=== PATIENT | female | born 2000 | race Caucasian/White ===

== ENCOUNTER 2024-10-07 15:34 | Emergency (ER) | payer MEDICAID, SELFPAY ==
--- NOTE | ~2024-10-07 | CT_ITS ---
CLINICAL INDICATION: Abdominal pain, nausea and vomiting COMPARISON: None. TECHNIQUE: Multiple contiguous axial images of the abdomen and pelvis were performed following the ad ministration of with 100 mL Omnipaque-350 intravenous contrast The dose-length product (DLP) was 865.07 mGy-cm. Automated exposure control and iterative reconstruction technique were employed. FINDINGS/OBSERVATIONS: Visualized lower thorax: The bilateral lung bases are clear. The heart is of normal size, without pericardial effusion. Moderate hiatal hernia is present. Liver: The liver enhances homogeneously and is not enlarged measuring 13 cm in longitudinal dimension. Gallbladder and biliary system: The gallbladder is surgically absent. Pancreas: The pancreas enhances homogeneously without ductal dilatation. Spleen: The spleen enhances homogeneously and is not enlarged measuring 9 cm in longitudinal dimension. Kidneys: The bilateral kidneys enhance symmetrically without hydronephrosis or renal calculi. Adrenal glands: Unremarkable. Gastrointestinal tract: Mural thickening and edema is identified within the entirety of the colon with trace surrounding infl ammatory change, findings suggesting a diffuse colitis. Appendix: The air-filled appendix is of normal caliber (axial series, images 98 through 111). Vasculature: Unremarkable. Lymph nodes: No pathologically enlarged or morphologically suspicious lymph nodes within the retroperitoneum or at the root of the mesentery. Pelvic structures: The bladder is decompressed. The uterus is anteverted and anteflexed, and otherwise unremarkable. Body wall and musculoskeletal: Small fat-containing umbilical hernia. No significant degenerative disease within the lower thoracic or lumbosacral spine. IMPRESSION: Findings suggesting an acute pancolitis, as detailed above Moderate hiatal hernia is also noted Reviewed, dictated and finalized at location A. OL SPEECH LANGUAGE PATHOLOGIST
[2024-10-07 15:46] VITALS: BP 139/84; PULSE 81; RESP 18; TEMP 36.6; O2SAT 98
[2024-10-07 16:08] LABS: BEDSIDEPREGUCG Negative (Negative)
[2024-10-07 16:12] LABS: Basophils Percent Auto 0.1 % (0.2-1.2); Eosinophils Percent Auto 0.1 % (0-4.4); Hematocrit 45.2 % (37.0-47.0); Hemoglobin 15.5 g/dL (12.0-15.0); Immature Granulocyte Absolute 0.05 K/mm3 (0.00-0.031); Immature Granulocyte Percent A 0.3 % (0-0.5); Lymphocytes Absolute Auto 1.08 K/mm3 (0.9-3.2); Lymphocytes Percent Auto 6.8 % (18.3-44.2); Mean Corpuscular HGB Conc 34.3 g/dl (32-36); Mean Corpuscular Hemoglobin 26.8 pg (26-34); Mean Corpuscular Volume 78.2 fl (80-100); Mean Platelet Volume 10.1 fl (7.4-10.4); Monocytes Absolute Auto 1.5 K/mm3 (0.1-0.6); Monocytes Percent Auto 9.4 % (2.6-8.5); Neutrophils Absolute Auto 13.3 K/mm3 (1.3-6.7); Neutrophils Percent Auto 83.3 % (45.5-73.1); Platelet Count Result 405 k/mm3 (150-375); Red Blood Count 5.78 M/mm3 (4.2-5.4); Red Cell Distribution Width 14.2 % (11.5-14.5)
[2024-10-07 16:23] LABS: Add Urine Microscopic? YES; Appearance Urine Turbid (Clear); Bacteria Urine 4+ /hpf; Bilirubin Urine 1+ (Negative); Blood Urine 3+ (Negative); Color Urine Dark Yellow (Yellow); Glucose Urine UA Negative (Negative); Ketones Urine 4+ mg/dL (Negative); Leukocyte Esterase Ur Negative LEU/UL (Negative); Mucus Urine Present /lpf; Need Manual Microscopic Reviewed; Nitrate Urine Negative (Negative); Protein Urine 4+ mg/dL (Negative); Specific Grav Ur 1.044 (1.001-1.035); Squamous Epithelial Cell Urine Many /hpf (Few); WBC Urine 51-100 /hpf (0-3); pH Urine 5.5 (5.0-9.0)
[2024-10-07 16:24] LABS: Alanine Aminotransferase 62 U/L (6-35); Albumin Level 5.1 g/dL (3.5-5.1); Alkaline Phosphatase 139 U/L (38-126); Anion Gap 19 mmol/L (4-12); Aspartate Amino Transferase 36 U/L (14-36); Bilirubin,Total 0.8 mg/dL (0.2-1.3); Blood Urea Nitrogen 17 mg/dL (7-17); Calcium 10.4 mg/dL (8.4-10.2); Carbon Dioxide 24 mmol/L (22-30); Chloride 97 mmol/L (98-107); Estimated Glomerular Filt Rate > 60; Glucose 158 mg/dL (65-110); Lipase 289 U/L (23-300); Potassium 3.4 mmol/L (3.4-5.0); Sodium 140 mmol/L (137-145)
[2024-10-07] MEDS: SODIUM CHLORIDE 0.9% IV 1,000 ML 999 ML IV CONT (16:56)
[2024-10-07] MEDS: ONDANSETRON INJ 4 MG/2 ML VIAL IV PUSH (16:57)
[2024-10-07] MEDS: PROMETHAZINE HCL 25 MG/ML AMPUL 12.5 MG IV PUSH (17:59)
--- OUTSIDE RECORDS SUMMARY | 2024-10-07 17:59 | XMS_ITS | Referral Summary ---
Author Organization [facility] Medical Office Building 1 Address [address] [place] [address] Care Team Providers Care Special Trackwork Blacksmith Name Role Phone No, Physician Primary Care Provider [phone] Martha Lafleur DO Unavailable [phone] Allergies Active Allergy Reactions Criticality Noted Date Comments Pollen Extracts Medications vitamin ferrous fumarate-folic ( Multivitamins) 28 mg iron- 800 mcg tablet Take 2 tablets by mouth daily 4 Active folic acid (FOLVITE) 1 mg tablet Take 4 tablets (4 mg total) by mouth daily 4 Active ondansetron ODT (ZOFRAN-ODT) 4 mg disintegrating tablet Take 1 tablet (4 mg total) by mouth every 8 (eight) hours as needed for nausea or vomiting Active Active Problems Problem Noted Date Diagnosed Date Hyperemesis gravidarum 09/06/2023 Seasonal allergic rhinitis 12/26/2013 Overview (11/22/2016): Seasonal allergies Immunizations Immunization Administration Dates Next Due DTP 03/25/2003, 2,04/23/2002,02/23 DTaP 02/17/2007 HPV9 03/27/2017,07/26/2015,04/26/2015 Hep A, Pediatric 04/26/2015,10/24/2010 Hep B, Adolescent or Pediatric 06/29/2002,2001,2001 Hib (HbOC) 03/25/2003, 2,04/23/2002,02/23 IPV 01/18/2006, 3,04/23/2002,02/23 Influenza LAIV (Nasal) 06/26/2012,05/25/2011 Influenza, Quadrivalent, Spl it, Preservative Free, Intramuscular 05/29/2019,10/01/2018 MMR 01/18/2006,12/23/2002 Meningococcal Conjugate (Menveo) 10/01/2018 Meningococcal MCV4P (Menactra) 04/26/2015 Pfizer SARS-CoV-2 Monovalent Vaccination (12+ Yrs) PURPLE 05/11/2021 Pneumococcal Conjugate 7-Valent 03/25/20 03,06/19/2002,04/23/2002,02/23 Tdap 04/26/2015 Varicella 08/10/2009,12/23/2002 Social History Tobacco Use Types Packs/Day Years Used Date Smoking Tobacco: Never Passive Smoke Exposure: Yes Smokeless Tobacco: Never Tobacco Cessation:Counseling Given: Not Answered Alcohol Use Standard Drinks/Week Comments Not Currently 0 (1 standard drink = 0.6 oz pur e alcohol) PHQ-2 Answer Date Recorded PHQ-2 Score 0 04/04/2019 Personal Safety Answer Date Recorded Have you ever been in or are you currently in a harmful physical or emotional relationship or is someone making you feel afraid or unsafe? Denies 09/05/2023 Comments No Sex and Gender Information Value Date Recorded Sex Assigned at Not on file Legal Sex Female 1:13 AM INVESTIGATOR Gender Identity Not on file Sexual Orientation Not on file Last Filed Vital Signs Vital Sign Reading Time Taken Comments Blood Pressure 137/84 09/06/2023 10:45 AM INVESTIGATOR Pulse 113 09/06/2023 10:46 AM INVESTIGATOR Temperature 36.7 C (98.1 F) 09/06/2023 10:45 AM INVESTIGATOR Respiratory Rate 18 09/06/2023 10:45 AM INVESTIGATOR Oxygen Saturation 92% 09/06/2023 10:45 AM INVESTIGATOR Inhaled Oxygen Concentration - - Weight 56.7 kg (125 lb) 09/05/2023 7:12 PM INVESTIGATOR Height 152.4 cm (5') 09/05/2023 7:12 PM INVESTIGATOR Body Mass Index 24.41 09/05/2023 7:12 PM INVESTIGATOR Plan of Treatment Not on file Insurance [facility] HMO/PPO Address[address] [address] [facility] FEDERAL [facility] [place] [place] [address] [facility] [employer] Advance Directives For more information, please contact: [phone] * Full Code (Latest Code Status on File) Date Activated Date Inactivated Comments 09/06/2023 8:42 AM 09/06/2023 5:13 PM Care Teams Special Trackwork Blacksmith Relationship Specialty Start Date End Date No, Physician PCP - General 08/08/23 Martha Lafleur, [address] [place] [address] [address] [place] [address] Referring Physician Obstetrics and Gynecology 09/06/23
--- OUTSIDE RECORDS SUMMARY | 2024-10-07 17:59 | XMS_ITS | Clinical Summary ---
Author Organization [facility] Medical Office Building 1 Address [address] [place] [address] Care Team Providers Care Supervisor Cap And Hat Production Name Role Phone No, Physician Primary Care Provider [phone] Martha Lafleur DO Unavailable [phone] Allergies Active Allergy Reactions Criticality Noted Date [...] 7-Valent 03/25/20 03,06/19/2002,04/23/2002,02/23 Tdap 04/26/2015 Varicella 08/10/2009,12/23/2002 Surgical History Surgery Date Site/Laterality Comments SINUS SURGERY TYMPANOSTOMY TUBE PLACEMENT CHOLECYSTECTOMY Medical History Medical History Date Comments Hx Other Medical 2011 Nasal surgery a nd adenoidectomy Seasonal allergies Hyperemesis gravidarum Family History Medical History Relation Name Comments Other Mother 2 Alive and well; Relation Name Status Comments Mother 1 Alive Mother 2 Social History Tobacco Use Types Packs/Day Years [...] on file Legal Sex Female 1:13 AM VALVE GRINDER Gender Identity Not on file Sexual Orientation Not on file Obstetrics History Para Term AB IAB SAB Ectopic Multiple Livin g Live Births 1 Date Outcome GA Total Labor Labor/2nd/3rd Weight Sex Type Anes PTL Shannon A1 A5 Name Clin Last Filed Vital Signs Vital Sign Reading Time Taken Comments Blood Pressure 137/84 09/06/2023 10:45 AM VALVE GRINDER Pulse 113 09/06/2023 10:46 AM VALVE GRINDER Temperature 36.7 C (98.1 F) 09/06/2023 10:45 AM VALVE GRINDER Respiratory Rate 18 09/06/2023 10:45 AM VALVE GRINDER Oxygen Saturation 92% 09/06/2023 10:45 AM VALVE GRINDER Inhaled Oxygen Concentration - - Weight 56.7 kg (125 lb) 09/05/2023 7:12 PM VALVE GRINDER Height 152.4 cm (5') 09/05/2023 7:12 PM VALVE GRINDER Body Mass Index 24.41 09/05/2023 7:12 PM VALVE GRINDER Plan of Treatment Health Maintenance Due Date Last Done Comments Cervical Cancer Screening 2001 Hepatitis C Screening 2001 Meningococcal B Vaccine (1 o f 2 - Standard) 2017 Depression Screening 10/01/2019 10/01/2018, 03/27/20 17 Regular Well Visit/Exam 18-64 12/18/2019 Covid-19 Vaccine (2 - 2023-2 5 season) 2024 05/11/2021 Influenza Vaccine (#1) 2024 9, 10/01/2018, 06/26/2012, Additional history exists DTaP/Tdap/Td Vaccine (7 - Td or Tdap) 04/26/2025 04/26/2015, 02/17/2007, 03/25/2003, Additional history exists Hepatitis B Screening Completed 06/29/2002 , 04/23/2002, 2001 Pneumococcal vaccine <65 Completed 003, 06/19/2002, 04/23/2002, Additional history exists Varicella Vaccines Completed 08/10/2009, 12/23/2002 HPV Vaccines Completed 03/27/2017, 07/12, 04/26/2015 Insurance [facility] FEDERAL FEDERAL [facility] FEDERAL Advance Directives For more information, please contact: [phone] * Full Code (Latest Code Status on File) Date Activated Date Inactivated Comments 09/06/2023 8:42 AM 09/06/2023 5:13 PM Care Teams Supervisor Cap And Hat Production Relationship Specialty Start Date End Date No, Physician PCP - General 08/08/23 Martha Lafleur, DO [address] [place] [address] [address], [place] [address] Referring Physician Obstetrics and Gynecology 09/06/23
[2024-10-07] MEDS: SODIUM CHLORIDE 0.9% IV 50 ML 200 ML (18:00)
--- NOTE | 2024-10-07 18:00 | PC.NURSE ---
12.5mg phenergan added to 50cc NS to infuse over 15 min
--- NOTE | 2024-10-07 18:23 | ED.GENADULT ---
HPI - General Adult General Chief complaint: Nausea/Vomiting/Diarrhea Stated complaint: n/v, abd pain, dizziness Time Seen by Provider: 10/07/24 16:16 History of Present Illness HPI narrative: Patient is a 23-year-old female who presents ER with nausea vomiting. Worsening over last couple days. Associated with epigastric cramping. Typically has 1 loose stool a day but recently has had 3-4. No fevers or chills or sweats. Occasionally gets lightheaded. Denies urinary frequency urgency or dysuria. Similar to when she had gallbladder issues. Related Data Allergies Allergy/AdvReac Type Severity Reaction Status Date / Time No Known Allergies Allergy Verified 10/07/24 15:37 Review of Systems Review of Systems: All systems reviewed & are unremarkable except as noted in HPI and below Constitutional: Constitutional: Reports no additional constitutional complaints Cardiovascular: Cardiovascular: Reports no additional cardiovascular complaints Respiratory: Respiratory: Reports no additional respiratory complaints Gastrointestinal: Gastrointestinal: Reports no additional gastrointestinal complaints Genitourinary: Genitourinary: Reports no additional female genitourinary complaints [facility] Past Medical History Medical History (Updated 10/07/24 @ 18:30 by Reid Trivedi MD) Healthy female adult Surgical History Surgical History (Updated 10/07/24 @ 18:24 by Reid Trivedi MD) History of cholecystectomy Exam Narrative: GENERAL: Fatigue-appearing, well-nourished, and in no acute distress. HEAD: Normocephalic, atraumatic. ENT: Mucous membranes moist. CHEST: Clear to auscultation. No respiratory distress. HEART: Regular rate and rhythm. Normal peripheral pulses. ABDOMEN: Soft, nontender, nondistended. EXTREMITIES: Normal range of motion. No edema. SKIN: Warm, dry, no rash. NEURO: Alert and oriented x3. PSYCH: Normal mood and affect. Course Course Emergency Course: Patient received Zofran and Phenergan. Informed of lab and imaging results. Will discharge with Cipro/Flagyl/Zofran. Recommend follow-up with PCP. Vital Signs Vital signs: Vital Signs Temperature 97.8 F 10/07/24 15:46 Pulse Rate 81 10/07/24 15:46 Respiratory Rate 18 10/07/24 15:46 Blood Pressure 139/84 10/07/24 15:46 Pulse Oximetry 98 10/07/24 15:46 Temperature 97.8 F 02/26/25 15:46 Pulse Rate 81 10/07/24 15:46 Respiratory Rate 18 10/07/24 15:46 Blood Pressure 139/84 10/07/24 15:46 Pulse Oximetry 98 10/07/24 15:46 Medical Decision Making Vital Signs Vital Signs: Vital Signs Temperature 97.8 F 10/07/24 15:46 Pulse Rate 81 10/07/24 15:46 Respiratory Rate 18 10/07/24 15:46 Blood Pressure 139/84 10/07/24 15:46 Pulse Oximetry 98 10/07/24 15:46 Temperature 97.8 F 10/07/24 15:46 Pulse Rate 81 10/07/24 15:46 Respiratory Rate 18 10/07/24 15:46 Blood Pressure 139/84 10/07/24 15:46 Pulse Oximetry 98 10/07/24 15:46 Lab Data 10/07/24 16:02 10/07/24 16:03 Labs: Lab Results 10/07/24 10/07/24 10/07/24 Range/Units 16:02 16:03 16:06 WBC 16.0 H (4.5-10.0) K/mm3 RBC 5.78 H (4.2-5.4) M/mm3 Hgb 15.5 H (12.0-15.0) g/dL Hct 45.2 (37.0-47.0) % MCV 78.2 L (80-100) fl MCH 26.8 (26-34) pg MCHC 34.3 (32-36) g/dl RDW 14.2 (11.5-14.5) % Plt Count 405 H (150-375) k/mm3 MPV 10.1 (7.4-10.4) fl Immature Gran % (Auto) 0.3 (0-0.5) % Neut % (Auto) 83.3 H (45.5-73.1) % Lymph % (Auto) 6.8 L (18.3-44.2) % [place] % (Auto) 9.4 H (2.6-8.5) % Eos % (Auto) 0.1 (0-4.4) % Baso % (Auto) 0.1 L (0.2-1.2) % Lymph # (Auto) 1.08 (0.9-3.2) K/mm3 [place] # (Auto) 1.5 H (0.1-0.6) K/mm3 Eos # (Auto) 0.0 (0-0.3) K/mm3 Baso # (Auto) 0.0 (0.0-0.1) K/mm3 Abs Immat Gran (auto) 0.05 H (0.00-0.031) K/mm3 Absolute Neuts (auto) 13.3 H (1.3-6.7) K/mm3 Absolute Nucleated RBC 0.000 (0.0-0.012) K/mm3 Nucleated RBC % 0.0 (0.0-0.2) % Sodium 140 (137-145) mmol/L Potassium 3.4 (3.4-5.0) mmol/L Chloride 97 L (98-107) mmol/L Carbon Dioxide 24 (22-30) mmol/L Anion Gap 19 H (4-12) mmol/L BUN 17 (7-17) mg/dL Creatinine 0.80 (0.7-1.0) mg/dL Estim Creat Clear Calc Not Reportable Estimated GFR > 60 (59 - ) Glucose 158 H (65-110) mg/dL Calcium 10.4 H (8.4-10.2) mg/dL Total Bilirubin 0.8 (0.2-1.3) mg/dL AST 36 (14-36) U/L ALT 62 H (6-35) U/L Alkaline Phosphatase 139 H (38-126) U/L Total Protein 10.0 H (6.3-8.2) g/dL Albumin 5.1 (3.5-5.1) g/dL Lipase 289 (23-300) U/L Urine Color Dark yellow (Yellow) Urine Appearance Turbid H (Clear) Urine pH 5.5 (5.0-9.0) Ur Specific [place] 1.044 H (1.001-1.035) Urine Protein 4+ H (Negative) mg/dL Urine Glucose (UA) Negative (Negative) mg/dL Urine Ketones 4+ H (Negative) mg/dL Ur Blood (Man) 3+ H (Negative) Urine Nitrate Negative (Negative) Urine Bilirubin 1+ H (Negative) Urine Urobilinogen 1.0 (<2.0) mg/dL Add Ur Microanalysis Reviewed Leukocyte Esterase Rfl Negative (Negative) JEROMY/UL Urine RBC 11-20 H (0-2) /hpf Urine WBC 51-100 H (0-3) /hpf Ur Squamous Epith Cells Many H (Few) /hpf Urine Bacteria 4+ H /hpf Urine Casts 11-20 Urine Mucus Present /lpf POC Urine HCG, Qual Negative (Negative) Imaging Data Radiologist's impression: ITS Impressions Abdomen/Pelvis CT 10/07/24 17:16 IMPRESSION: Findings suggesting an acute pancolitis, as detailed above Moderate hiatal hernia is also noted Discharge Plan Discharge Clinical Impression: Colitis Patient Disposition: Home, Self-Care Condition: Stable Instructions: Antibiotic Form, Colitis (ED) Additional Instructions: Please drink plenty of fluids at home. Return to the emergency department if you develop high fevers, have persistent severe abdominal pain, or have bloody stools or vomit, as these could be signs of a more serious medical emergency. Return to the emergency department if you are unable to keep down liquids because of severe nausea/vomiting. Patient Language: Italian Prescriptions: New ciprofloxacin HCl [Cipro] 500 mg tablet 500 mg PO Q12H Qty: 14 0RF metronidazole 500 mg tablet 500 mg PO Q8H Qty: 21 0RF ondansetron 4 mg tablet,disintegrating 4 mg PO Q6H PRN (Reason: nausea and vomiting) Qty: 10 0RF Follow-up/Referrals: Emeterio Beck MD [Physician] - 1 Week PHYSICIAN,RUSSIAN HISTORY PROFESSOR [Primary Care Provider] -
--- NOTE | 2024-10-07 18:26 | PC.NURSE ---
Patient sleeping soundly in stretcher. No obvious distress noted.
--- OUTSIDE RECORDS SUMMARY | 2024-10-07 18:29 | XMS_ITS | Referral Summary ---
Author Organization [facility] Medical Office Building 1 Address [address] [place] [address] Care Team Providers Care Basket Patcher Name Role Phone No, Physician Primary Care Provider [phone] Martha Lafleur DO Unavailable [phone] Allergies Active Allergy Reactions Criticality Noted Date [...] on file Legal Sex Female 1:13 AM FINISH FILER Gender Identity Not on file Sexual Orientation Not on file Last Filed Vital Signs Vital Sign Reading Time Taken Comments Blood Pressure 137/84 09/06/2023 10:45 AM FINISH FILER Pulse 113 09/06/2023 10:46 AM FINISH FILER Temperature 36.7 C (98.1 F) 09/06/2023 10:45 AM FINISH FILER Respiratory Rate 18 09/06/2023 10:45 AM FINISH FILER Oxygen Saturation 92% 09/06/2023 10:45 AM FINISH FILER Inhaled Oxygen Concentration - - Weight 56.7 kg (125 lb) 09/05/2023 7:12 PM FINISH FILER Height 152.4 cm (5') 09/05/2023 7:12 PM FINISH FILER Body Mass Index 24.41 09/05/2023 7:12 PM FINISH FILER Plan of Treatment Not on file Insurance [facility] MEDICAL [facility] HMO/PPO Address: [address] [address] [facility] [employer] [facility] [place] [address] [facility] [employer] Advance Directives For more information, please contact: [phone] * Full Code (Latest Code Status on File) Date Activated Date Inactivated Comments 09/06/2023 8:42 AM 09/06/2023 5:13 PM Care Teams Basket Patcher Relationship Specialty Start Date End Date No, Physician PCP - General 08/08/23 Martha Lafleur, [address] [place] [address] [address] [place] [address] Referring Physician Obstetrics and Gynecology 09/06/23
--- OUTSIDE RECORDS SUMMARY | 2024-10-07 18:29 | XMS_ITS | Clinical Summary ---
Author Organization [facility] Medical Office Building 1 Address [address] [place] [address] Care Team Providers Care Sample Distributor Name Role Phone No, Physician Primary Care Provider [phone] Martha Lafleur DO Unavailable [phone] Allergies Active Allergy Reactions Criticality Noted Date [...] on file Legal Sex Female 1:13 AM GENERATOR REBUILDER Gender Identity Not on file Sexual Orientation Not on file Obstetrics History Para Term AB IAB SAB Ectopic Multiple Livin g Live Births 1 Date Outcome GA Total Labor Labor/2nd/3rd Weight Sex Type Anes PTL Shannon A1 A5 Name Clin Last Filed Vital Signs Vital Sign Reading Time Taken Comments Blood Pressure 137/84 09/06/2023 10:45 AM GENERATOR REBUILDER Pulse 113 09/06/2023 10:46 AM GENERATOR REBUILDER Temperature 36.7 C (98.1 F) 09/06/2023 10:45 AM GENERATOR REBUILDER Respiratory Rate 18 09/06/2023 10:45 AM GENERATOR REBUILDER Oxygen Saturation 92% 09/06/2023 10:45 AM GENERATOR REBUILDER Inhaled Oxygen Concentration - - Weight 56.7 kg (125 lb) 09/05/2023 7:12 PM GENERATOR REBUILDER Height 152.4 cm (5') 09/05/2023 7:12 PM GENERATOR REBUILDER Body Mass Index 24.41 09/05/2023 7:12 PM GENERATOR REBUILDER Plan of Treatment Health Maintenance Due Date [...] HPV Vaccines Completed 03/27/2017, 07/12, 04/26/2015 Insurance [facility] H[facility]/PPO Address: [address] [address] [place] [address] [facility] FEDERAL FEDERAL [facility] FEDERAL Advance Directives For more information, please contact: [phone] * Full Code (Latest Code Status on File) Date Activated Date Inactivated Comments 09/06/2023 8:42 AM 09/06/2023 5:13 PM Care Teams Sample Distributor Relationship Specialty Start Date End Date No, Physician PCP - General 08/08/23 Martha Lafleur, DO [address] [place] [address] [address], [place] [address] Referring Physician Obstetrics and Gynecology 09/06/23
[2024-10-07 18:39] VITALS: BP 131/70; PULSE 77; RESP 18; TEMP 36.7; O2SAT 97
== END 2024-10-07 18:50 | disposition home or self-care (01) ==
PROVIDERS: Emergency Provider Emergency Medicine
DX: K52.9 Noninfective gastroenteritis and colitis, unspecified (principal); Z90.49 Acquired absence of other specified parts of digestive tract; K44.9 Diaphragmatic hernia without obstruction or gangrene
CPT/HCPCS: 36415; 74177; 80053; 81001; 81025; 83690; 85025; 96361; 96374; 96375; 99284; J2405; J2550; J7030; Q9967